=== PATIENT | male | born 1950 | race Caucasian/White ===

== ENCOUNTER 2016-12-02 08:49 | Day surgery (SDC) | payer OTHER, MEDICARE ==
[~2016-12-02 08:49] MED LIST: FENTANYL 250 MCG/5 ML AMP IV PRN; LACTATED RINGERS 1,000 ML IV SCH; MIDAZOLAM HCL 5 MG/5 ML VIAL IV PRN
[2016-12-02] MEDS ORDERED: IV START KIT ONE (09:35)
[2016-12-02] MEDS ORDERED: LACTATED RINGERS 1,000 ML ONE (09:35)
[2016-12-02] MEDS ORDERED: MIDAZOLAM HCL 5 MG/5 ML VIAL ONE (10:19)
[2016-12-02] MEDS ORDERED: FENTANYL 250 MCG/5 ML AMP ONE (10:19)
== END 2016-12-02 11:23 | disposition home or self-care (01) ==
LOC: SDC 08:49
PROVIDERS: ATTEND Internal Medicine Gastroenterology
PROC: 0DJD8ZZ Inspection of Lower Intestinal Tract, Via Natural or Artificial Opening Endoscopic (ICD-10-PCS; principal; 2016-12-02)
DX: D50.9 Iron deficiency anemia, unspecified (principal); Z86.010 Personal history of colon polyps; D56.9 Thalassemia, unspecified; F41.8 Other specified anxiety disorders
CPT/HCPCS: 45378; J3010; J2250; J7120